=== PATIENT | male | born 1960 | race Caucasian/White ===

== ENCOUNTER 2019-09-08 16:52 | Emergency (ER) | payer OTHER ==
[2019-09-08] MEDS ORDERED: Lidocaine 1% w/Epinephrine 1:100K 30 ML VIAL ONE (17:26)
--- NOTE | 2019-09-08 20:21 | CT ---
CT OF THE BRAIN WITHOUT CONTRAST: 09/08/[address] was done following trauma. The ventricles are normal in size with no shift. No intra cranial bleeding or extra-axial hematoma was seen. There is no sign of mass, edema, or stroke. The sk ull appears intact. The visible paranasal sinuses are clear. IMPRESSION: No acute intracranial findings. POS: HOME
== END 2019-09-08 18:05 | disposition home or self-care (01) ==
LOC: BURERS 16:52
DX: S01.01XA Laceration without foreign body of scalp, initial encounter (principal); W22.8XXA Striking against or struck by other objects, initial encounter
CPT/HCPCS: 12002; 70450; J2001